=== PATIENT | female | born 1990 | race African-American/Black ===

== ENCOUNTER 2016-10-13 11:47 | Day surgery (SDC) | payer BC, MEDICAID ==
[~2016-10-13 11:47] MED LIST: ALBUTEROL SULFATE 0.083% NEB 2.5 MG/3 ML AMPUL NEB PRN; GLYCOPYRROLATE INJ 0.4 MG/2 ML VIAL ONE; LACTATED RINGERS 1000 ML IV PRN; LIDOCAINE 0.5% INJ-PF (5 MG/ML) 50 ML SDV SUBCUT PRN; LIDOCAINE 2% INJ-PF (20 MG/ML) 10 ML AMPUL ONE; LIDOCAINE 4% INJ/PF (40 MG/ML) 5 ML AMPUL NEB PRN; SUCCINYLCHOLINE CHLORIDE INJ 200 MG/10 ML VIAL ONE
[2016-10-13] MEDS ORDERED: DEXMEDETOMIDINE INJ 80 MCG/20 ML VIAL IV ONE (13:51)
[2016-10-13] MEDS ORDERED: PROPOFOL INJ 200 MG/20 ML VIAL IV ONE (13:51)
[2016-10-13] MEDS ORDERED: FENTANYL CITRATE INJ/PF 250 MCG/5 ML AMPULE ONE (13:51)
[2016-10-13] MEDS ORDERED: MIDAZOLAM 2 MG/2 ML INJ ONE (13:51)
--- NOTE | 2016-10-13 15:23 | Operative Report ---
Operative Report DATE OF SURGERY: 10/13/16 Operative Report: patient has been npo for 12 hrs prior to procedure,consents reviewed,iv access established. Patient taken to the bronchoscopy suite and intubated with a #8 ET tube for anesthesiology in her tracheobronchial tree was explored. There are no abnormalities of the distal trachea and no splaying of the tracy. Left mainstem bronchus, left upper lobe, lingula, and left lower lobe all within normal limits. There were no abnormalities of the right mainstem bronchus right bronchus intermedius right upper lobe right middle lobe and the right lower lobe all showed normal mucosa with no corrugations or bleeding or submucosal swelling. Lavages were taken from the right middle lobe and the right lower lobe. Transbronchial biopsies were taken from the right middle lobe and right lower lobe. Patient tolerated procedure well postprocedure SaO2 is 98 % and a chest x-ray is pending at this time. Biopsies and lavage fluid have been sent to the lab for appropriate cultures and studies. PREOPERATIVE DIAGNOSIS: sarcoidosis POSTOPERATIVE DIAGNOSIS: same OPERATION: fiberoptic bronchoscopy with bronchoalveor lavage and transbronchial biopsies SURGEON: SRAVANI MENG ANESTHESIA: GA TISSUE REMOVED OR ALTERED: bronchoalveolar lavage and transbronchial biopsies COMPLICATIONS: none ESTIMATED BLOOD LOSS: 5cc INTRAOPERATIVE FINDINGS: normal mucosal
[2016-10-13] MEDS ORDERED: DIPHENHYDRAMINE HCL 50 MG/ML VIAL IV PRN (15:35)
[2016-10-13] MEDS ORDERED: ONDANSETRON HCL INJ/PF 4 MG/2 ML SDV IV PRN (15:35)
[2016-10-13] MEDS ORDERED: ACETAMINOPHEN 100 ML IV ONE (15:47)
[2016-10-13 16:51] LABS: FLUID APPEARANCE HAZY; FLUID TYPE BRONCHIAL WASH
[2016-10-13 16:52] LABS: FLUID RBC AVERAGE 231.5; FLUID RBC DILUENT USED NONE USED; FLUID RBC DILUTION FACTOR 1; FLUID RBC SIDE 1 232; FLUID RBC SIDE 2 231; TOTAL RBC SQUARES COUNTED FLD 25
[2016-10-13 16:56] LABS: FLUID TYPE BRONCHIAL WASH
[2016-10-13 16:57] LABS: FLUID APPEARANCE SLIGHTLY HAZY; FLUID RBC AVERAGE 118.5; FLUID RBC DILUENT USED NONE USED; FLUID RBC DILUTION FACTOR 1; FLUID RBC SIDE 1 116; FLUID RBC SIDE 2 121; TOTAL RBC SQUARES COUNTED FLD 25
[2016-10-13] MEDS ORDERED: ACETAMINOPHEN 325 MG TABLET PO SCH (18:00)
[2016-10-13 18:22] VITALS: BP 126/80
== END 2016-10-13 18:15 | disposition home or self-care (01) ==
LOC: OROUT 11:47
PROVIDERS: ATTEND Internal Medicine Pulmonary Disease
PROC: 0BBD8ZX Excision of Right Middle Lung Lobe, Via Natural or Artificial Opening Endoscopic, Diagnostic (ICD-10-PCS; 2016-10-13)
PROC: 0BBF8ZX Excision of Right Lower Lung Lobe, Via Natural or Artificial Opening Endoscopic, Diagnostic (ICD-10-PCS; principal; 2016-10-13 13:45)
PROC: 0B9F8ZX Drainage of Right Lower Lung Lobe, Via Natural or Artificial Opening Endoscopic, Diagnostic (ICD-10-PCS; 2016-10-13 13:45)
DX: R91.8 Other nonspecific abnormal finding of lung field (principal); D86.0 Sarcoidosis of lung; R06.02 Shortness of breath; R05 Cough; D86.9 Sarcoidosis, unspecified
CPT/HCPCS: 31628; 31624; 87070; 87205; 87206; 87116; 87101; 89050; 81025; 87015; 88162; 88305 ×2; 71010; 94640; J2250; J3010; J0330; J2704; J3490 ×3; J0131; 520